=== PATIENT | female | born 1975 | race Caucasian/White ===

== ENCOUNTER 2017-10-10 06:43 | Day surgery (SDC) | payer OTHER ==
[~2017-10-10 06:43] MED LIST: Buffered Lidocaine 0.9% SYRIN* 5 ML/SYR SYRINGE INTRADERM ONE; Buffered Lidocaine 0.9% SYRIN* 5 ML/SYR SYRINGE ONE; Dexamethasone IV* 4 MG/ML 1 ML (4 MG) IV SLOW PU ONE; Dexamethasone IV* 4 MG/ML 1 ML (4 MG) ONE; Famotidine IV* 10 MG/ML 2 ML (20 mg) IV ONE; Famotidine IV* 10 MG/ML 2 ML (20 mg) ONE
[2017-10-10 07:27] LABS: Hematocrit 41 % (35-47); Hemoglobin 13.7 g/dl (12.0-16.0); Mean Corpuscular HGB Conc 34 g/dl (31-36); Mean Corpuscular Hemoglobin 29 pg (27-31); Mean Corpuscular Volume 87 fL (80-97); Mean Platelet Volume 8 um3 (7.4-10.4); Red Cell Distribution Width 13 % (10.5-15); White Blood Count 6.9 10^3/ul (3.5-10.8)
[2017-10-10] MEDS ORDERED: Silver Nitrate/Potassium Nitr* 1 EA STICK ONE (07:32)
[2017-10-10] MEDS ORDERED: DiMENhydriNATE IV* 50 MG/ML VIAL IV PUSH PRN (07:33)
[2017-10-10] MEDS ORDERED: Ondansetron INJ* 2 MG/ML VIAL IV PRN (07:33)
[2017-10-10] MEDS ORDERED: oxyCODONE/Acetamin 5/325 MG* TAB PO PRN (07:33)
[2017-10-10] MEDS ORDERED: fentaNYL* 50 MCG/ML 2 ML VIAL (100 MCG VIAL) IV PRN (07:33)
[2017-10-10] MEDS ORDERED: Scopolamine 1.5 mg* PATCH TRANSDERM PRN (07:33)
[2017-10-10] MEDS ORDERED: Ondansetron INJ* 2 MG/ML VIAL ONE (07:36)
[2017-10-10] MEDS ORDERED: Chloroprocaine 2%* 20 ML VIAL ONE (07:36)
[2017-10-10] MEDS ORDERED: Propofol* 10 MG/ML 20 ML BTL IV PUSH ONE (07:36)
[2017-10-10] MEDS ORDERED: Midazolam* 1 MG/ML 5 ML VIAL (5 MG) ONE (07:36)
[2017-10-10] MEDS ORDERED: Phenylephrine IV* 40 MCG/ML 10 ML SYRINGE ONE (08:14)
[2017-10-10] MEDS ORDERED: Lidocaine 2% PF * 5 ML VIAL ONE (08:15)
[2017-10-10] MEDS ORDERED: Acetaminophen TAB* 325 MG ONE (11:25)
[2017-10-10 11:26] VITALS: BP 109/69
--- NOTE | 2017-10-10 11:26 | OP ---
DATE OF OPERATION: 10/10/17 - [facility] DATE OF : 75 SURGEON: Michelle Torres MD ANESTHESIOLOGIST: Aly Jj MD ANESTHESIA: Spinal. PRE-OP DIAGNOSES: Abnormal uterine bleeding, submucosal fibroid, failed hormonal management. POST-OP DIAGNOSES: Abnormal uterine bleeding, submucosal fibroid, failed hormonal management. OPERATIVE PROCEDURE: Laparoscopic myomectomy, removal and reinsertion of Mirena IUD. ESTIMATED BLOOD LOSS: Minimal. SPECIMEN: Myoma. FLUIDS: Crystalloid 1200 mL deficit. DRAINS: 200 cc of clear urine. FINDINGS: Left lower segment posterior fibroid. DESCRIPTION OF PROCEDURE: After informed consent was signed, the patient was taken to the operating room where she was given a spinal anesthesia that was found to be adequate. She was prepped and draped in the dorsal lithotomy position in the [facility]. Two speculums were placed into the vagina to expose the cervix and the anterior lip of the cervix was grasped with a single- tooth tenaculum. The cervix was dilated to a size 26 Wallace dilator. The MyoSure device was then assembled, primed, and inserted through the cervix into the uterine cavity. On inspection of the uterine cavity, the IUD was noted and was difficult to adequately visualize the uterine cavity; therefore, a grasper was used to remove the IUD. On inspection again, the previously noted myoma was noted in the left lower posterior uterine segment. The MyoSure reach was inserted and used to slowly cut away the myoma always under direct visualization until it was flushed with the endometrium. MyoSure device was then removed. The uterus was sounded to 8.5 cm. A new Mirena IUD was set at 8.5 cm and inserted into the uterine cavity without difficulty with the strings were trimmed to 3 to 4 cm and the tenaculum was removed from the cervix. Good hemostasis was noted. The speculum was then removed. The patient was placed back in the supine position and moved to the stretcher in stable condition. [id number] #: [id number] MTDD
[2017-10-10] MEDS ORDERED: Acetaminophen TAB* 325 MG PO ONE (11:33)
[2017-10-13] MEDS ORDERED: Scopolamine PATCH Remove* 1 NOTE MISC PATCH OFF ONE (07:34)
== END 2017-10-10 11:52 | disposition home or self-care (01) ==
LOC: OR 06:43
PROVIDERS: ATTEND Obstetrics & Gynecology
DX: D25.0 Submucous leiomyoma of uterus (principal); N92.5 Other specified irregular menstruation; G47.33 Obstructive sleep apnea (adult) (pediatric); E66.3 Overweight
CPT/HCPCS: 36415; 81025; 85025; 86850; 86900; 86901; 88305; A9270-GY; J1100; J2250; J2400; J2405; J2704